=== PATIENT | male | born 1990 | race Two or more races ===

== ENCOUNTER 2018-10-31 13:05 | Emergency (ER) | payer SELFPAY ==
[~2018-10-31] VITALS: Ht 182.9 cm; Wt 83.9 kg
[2018-10-31 13:21] VITALS: BP 127/73
[2018-10-31] MEDS ORDERED: GABAPENTIN600 MG ORAL ×2 (13:23→13:37)
--- NOTE | 2018-10-31 13:34 | NUR ---
ED Nurse Note: Patient here for medication refill; Patient awake, alert, oriented x4. Regular, unlabored breathing noted. Sitting in chair without facial grimacing or guarding noted.
[2018-10-31 13:40] VITALS: BP 127/73
--- NOTE | 2018-10-31 13:42 | NUR ---
ER DISCHARGE NOTE: Patient is cleared to be discharged per ERMD, pt is aox4, on room air, with stable vital signs. pt was given dc and prescription instructions, pt was able to verbalize understanding, pt id band removed without complications. pt is able to ambulate with steady gait. pt took all belongings.
--- NOTE | 2018-11-01 08:13 | Emergency Room Report ---
History of Present Illness General Chief Complaint: Medication Refill Source: Patient Present Illness HPI 28-year-old male presents ED for evaluation. Is here for medication refill. 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 States he only has a few pills left. Does not have a PMD at this time. Denies pain at this time. No other aggravating relieving factors. Denies any other associated symptoms Allergies: Coded Allergies: No Known Allergies (Unverified , 10/31/18) Patient History Past Medical History: none Past Surgical History: none Pertinent Family History: none Social History: Denies: smoking, alcohol use, drug use Immunizations: UTD Reviewed Nursing Documentation: PMH: Agreed; PSxH: Agreed Review of Systems All Other Systems: negative except mentioned in HPI Physical Exam Vital Signs Date Time Temp Pulse Resp B/P (MAP) Pulse Ox O2 Delivery O2 Flow Rate FiO2 10/31/18 13:21 98.2 18 127/73 97 Room Air 10/31/18 13:21 97 Sp02 EP Interpretation: reviewed, normal General Appearance: no apparent distress, alert, GCS 15, non-toxic Head: normocephalic Eyes: bilateral eye normal inspection, bilateral eye PERRL ENT: hearing grossly normal Neck: normal inspection Respiratory: normal inspection Cardiovascular #1: normal inspection Gastrointestinal: normal inspection Rectal: deferred Genitourinary: no CVA tenderness Musculoskeletal: back normal, gait/station normal, normal range of motion, non- tender Neurologic: alert, oriented x3, responsive, motor strength/tone normal, sensory intact, speech normal Psychiatric: judgement/insight normal, memory normal, mood/affect normal, no suicidal/homicidal ideation Skin: normal color Lymphatic: normal inspection Medical Decision Making Diagnostic Impression: Primary Impression: Encounter for medication refill ER Course 28-year-old male presents to ED refill of her medication. takes gabapentin hospital course: After initial history and physical, she produces pill bottle which documents gabapentin being prescribed. Agreed to provide him with 3-day prescription of his gabapentin however he will need to follow-up with a PMD in order to get refills on his medication Does not have a PMD. I will provide referrals. Safe for discharge for close outpatient follow-up Diagnosis-encounter for medication refill Stable and discharged to home with prescription for gabapentin. Followup with PMD. Return to ED if symptoms recur or worsen Last Vital Signs Date Time Temp Pulse Resp B/P (MAP) Pulse Ox O2 Delivery O2 Flow Rate FiO2 10/31/18 13:40 98.0 70 19 127/73 99 Room Air Status: improved Disposition: HOME, SELF-CARE Condition: Stable Scripts Gabapentin* (GABAPENTIN*) 600 Mg Tablet 600 MG ORAL THREE TIMES A DAY for 3 Days, TAB Prov: Quinton Ramirez MD 10/31/18 Referrals: NOT CHOSEN IPA/,REFERRING (PCP) [facility]. [facility] Patient Instructions: Medicine Refill at the Emergency Department Quinton Ramirez MD Nov 01, 2018 08:13
== END 2018-10-31 13:43 | disposition home or self-care (01) ==
LOC: EMR 13:30
DX: Z76.0 Encounter for issue of repeat prescription (principal)
CPT/HCPCS: 99282